=== PATIENT | female | born 1995 | race Caucasian/White ===

== ENCOUNTER → 2024-07-24 | Outpatient (CLI) | payer OTHER ==
[2024-07-27 17:13] LABS: CALPROTECTIN,FECAL <5 ug/g (<=49)
[2024-07-27 17:14] LABS: PANCREATIC ELASTASE,FECAL 686 ug/g (>=100)
== END ==
LOC: LAB SHORT 08:42 → LAB 08:42
PROVIDERS: Family Medicine
DX: K52.9 Noninfective gastroenteritis and colitis, unspecified (principal)
CPT/HCPCS: 82653; 83993

== ENCOUNTER 2024-09-14 11:07 | Day surgery (SDC) | payer OTHER ==
[~2024-09-14] VITALS: Ht 162.6 cm; Wt 64.4 kg
[~2024-09-14 11:07] MED LIST: Dexamethasone Sod Phos 10 MG/ML 1ML VIAL ONE; FentaNYL Citrate 50 MCG/ML 2 ML Injection ONE; Ketorolac Tromethamine 30mg Vial ONE; Lactated Ringer's 1,000 ML IV ONE; Ondansetron HCl 2 MG / ML 2ML Vial ONE; Rocuronium Bromide 10 MG/ML 5ML Injection IV ONE; Ropivacaine 0.5% HCL/PF 5 MG/ML 30ML Vial ONE; Sugammadex Sodium 200 MG/2ML SDV (100 MG/ML) ONE; propofoL 20 ML IV ONE
[2024-09-14] MEDS ORDERED: Lactated Ringer's 1,000 ML IV ONE (11:15)
[2024-09-14] MEDS ORDERED: CYMBALTA20 M2 PO (11:16)
[2024-09-14] MEDS ORDERED: BUSPIRONE HCL5 M6 PO (11:16)
[2024-09-14] MEDS ORDERED: Midazolam HCl 1MG / ML 2ML Vial ONE ×2 (11:42→11:50)
[2024-09-14] MEDS ORDERED: Acetaminophen 500 MG Tab ONE (13:50)
== END 2024-09-14 14:20 | disposition home or self-care (01) ==
LOC: ORSCSDS 11:07
PROVIDERS: Obstetrics & Gynecology
PROC: 0UT74ZZ Resection of Bilateral Fallopian Tubes, Percutaneous Endoscopic Approach (ICD-10-PCS; principal; 2024-09-14 12:00)
PROC: 0UPD7HZ Removal of Contraceptive Device from Uterus and Cervix, Via Natural or Artificial Opening (ICD-10-PCS; principal; 2024-09-14 12:00)
DX: Z30.2 Encounter for sterilization (principal); D25.9 Leiomyoma of uterus, unspecified; N83.291 Other ovarian cyst, right side; F41.9 Anxiety disorder, unspecified; F32.A Depression, unspecified; Z79.899 Other long term (current) drug therapy
CPT/HCPCS: 88302; A9270; J1100; J1885; J2250; J2405; J2704; J2795; J3010; J7120

== ENCOUNTER → 2025-02-20 | Outpatient (CLI) | payer OTHER ==
[~2025-02-20] MED LIST changes: +BUSPIRONE HCL5 M6 PO; +CYMBALTA20 M2 PO; -Dexamethasone Sod Phos 10 MG/ML 1ML VIAL ONE; -FentaNYL Citrate 50 MCG/ML 2 ML Injection ONE; -Ketorolac Tromethamine 30mg Vial ONE; -Lactated Ringer's 1,000 ML IV ONE; -Ondansetron HCl 2 MG / ML 2ML Vial ONE; -Rocuronium Bromide 10 MG/ML 5ML Injection IV ONE; -Ropivacaine 0.5% HCL/PF 5 MG/ML 30ML Vial ONE; -Sugammadex Sodium 200 MG/2ML SDV (100 MG/ML) ONE; -propofoL 20 ML IV ONE
== END ==
LOC: LAB 16:14 → LAB SHORT 16:14
DX: J34.89 Other specified disorders of nose and nasal sinuses (principal)
CPT/HCPCS: 87070; 87077; 87186; 87205

== ENCOUNTER 2025-05-13 08:46 | Day surgery (SDC) | payer OTHER ==
[~2025-05-13] VITALS: Ht 162.6 cm; Wt 67.9 kg
[2025-05-13] VITALS (15 sets, daily range): BP systolic 113–131; BP diastolic 63–90
[~2025-05-13 08:46] MED LIST changes: -CYMBALTA20 M2 PO; +DULO60 PO; +ZYRTEC10 M4 PO
[2025-05-13] MEDS ORDERED: Dexamethasone Sod Phos 10 MG/ML 1ML VIAL ONE (08:57)
[2025-05-13] MEDS ORDERED: Ketorolac Tromethamine 30mg Vial ONE (08:57)
[2025-05-13] MEDS ORDERED: Ondansetron HCl 2 MG / ML 2ML Vial ONE (08:57)
[2025-05-13] MEDS ORDERED: FentaNYL Citrate 50 MCG/ML 5 ML Injection ONE (08:58)
[2025-05-13] MEDS ORDERED: Bupivacaine 0.25% Epi 1:200000 30 ML Vial ONE (10:08)
--- NOTE | 2025-05-13 10:11 | NUR ---
History, Chart, Medications and Allergies reviewed before start of procedure. Pre-Op teaching done. Pt verbalizes understanding. Patient confirms NPO status and agrees with scheduled surgery. PT GLASSES PLACED IN PACU. PT STATES "I TOOK NAPROXEN ON 05/12 ON ACCIDENT." SURGEON AND ANES AWARE. PT WAS DELAYED FOR PROCEDURE D/T WAITING ON THE PHONE WITH INSURANCE IN REGARDS TO CHECKING ON COST AFTER ADMITTING QUOTED AN AMOUNT. [employer], CAME TO PT BS AND STATED TO PT "INSURANCE SHOULD COVER IT BECAUSE I HAVE NEVER SEEN AN INSURANCE COVER JUST PART OF A PROCEDURE BUT NOT THE ROBOT PART." PT THEN AGREES TO FOLLOW THROUGH WITH ROBOTIC PROCEDURE.
[2025-05-13] MEDS ORDERED: Ondansetron HCl 2 MG / ML 2ML Vial IV PRN (11:40)
[2025-05-13] MEDS ORDERED: Metoclopramide HCl 5MG / ML 2ML Vial IV PRN (11:40)
[2025-05-13] MEDS ORDERED: FentaNYL Citrate 50 MCG/ML 2 ML Injection IV PRN ×2 (11:40)
[2025-05-13] MEDS ORDERED: Albuterol 2.5 MG/3 ML VIAL INH PRN (11:40)
[2025-05-13] MEDS ORDERED: HYDROmorphone HCl/Pf 1MG SYR IV PRN ×2 (11:40)
[2025-05-13] MEDS ORDERED: FentaNYL Citrate 50 MCG/ML 2 ML Injection ONE (13:29)
--- NOTE | 2025-05-13 14:05 | NUR ---
PT TO STEP. DRESSINGS C/D/I TO ABD X4. ALEX PAD IN PLACE WITH SCANT AMOUNT OF RED DRAINAGE. PATIENT TEARFUL, STATES SHE IS FEELING EMOTIONAL. DENIES PAIN OR NAUSEA.
--- NOTE | 2025-05-13 14:58 | NUR ---
INCREASED BRUISING NOTED AROUND ALL [address] GRIFFIN INFORMED, SHE STATES IT IS DUE TO USING ALL 4 SITES DURING SURGERY AND PATIENT TAKING NAPROXEN YESTERDAY.
--- NOTE | 2025-05-13 15:14 | NUR ---
UP TO BATHROOM AND VOIDED.
--- NOTE | 2025-05-13 16:12 | NUR ---
Discharge instructions reviewed with patient. Patient verbalizes understanding. Copy given to patient to take home prior to discharge.
== END 2025-05-13 23:00 | disposition home or self-care (01) ==
LOC: ORSCMMR 08:46 → ORD 10:00 → ORSCMMR 10:00
PROVIDERS: Obstetrics & Gynecology
PROC: 8E0W4CZ Robotic Assisted Procedure of Trunk Region, Percutaneous Endoscopic Approach (ICD-10-PCS; principal; 2025-05-13 10:00)
PROC: 0UB04ZZ Excision of Right Ovary, Percutaneous Endoscopic Approach (ICD-10-PCS; principal; 2025-05-13 10:00)
DX: N83.201 Unspecified ovarian cyst, right side (principal); N73.6 Female pelvic peritoneal adhesions (postinfective); F32.A Depression, unspecified; F41.9 Anxiety disorder, unspecified; Z79.899 Other long term (current) drug therapy
CPT/HCPCS: 88108; 88305; A9270; J1100; J1885; J2405; J2704; J3010; J7120